=== PATIENT | female | born 1975 | race Caucasian/White ===

== ENCOUNTER 2017-05-21 18:57 | Emergency (ER) | payer OTHER, MEDICAID ==
[~2017-05-21] VITALS: Ht 182.9 cm; Wt 129.3 kg
[~2017-05-21 18:57] MED LIST: ADVAIR; ALPRAZOLAM ER1 MG PO; ALPRAZOLAM PO; AMOXICILLIN875 MG PO; BACTRIM DS TAB1 EACH; BENADRYL25 MG PO; BUTALB-APAP-CA1 EACH PO; CARISOPRODOL 3350 MG PO; CELEBREX 200 M200 M1 PO; CLONIDINE; DOXYCYCLINE 10100 MG PO; FLEXERIL PO; FLUCONASE; FLUZONE 2045 MCG/011; HYDROCODON-ACE1 EAC5 PO; HYDROCODON-ACE1 EAC8 PO; IBUPROFEN 800800 MG PO; KEFLEX500 MG PO; LIORESAL 10 MG10 MG PO; LOVENOX SUBQ; MACROBID 100 M100 M1 PO; MARINOL10 MG PO; MOBIC7.5 M1 PO; MOBIC7.5 MG PO; MULTI VITAMIN1 EACH PO; NORCO 5-325 TA1 EAC1 PO; NORCO 5-325 TA1 EACH PO; NORCO 7.5-3251 EACH PO; PEPCID40 MG PO; PERCOCET 5-3251 EACH PO; PHENERGAN 25 MG25 M1 PO; PNEUMOVAX25 MCG/0.5; PREDNISONE 20 M20 M1 PO; REQUIP 0.25 M0.25 MG PO; ULTRAM50 MG PO; VISTARIL 25 MG25 M1 PO; XANAX 0.25 MG0.25 MG PO; XANAX 0.5 MG0.5 M1 PO; ZANTAC 150MG T150 MG PO; ZYRTEC 10 MG TA10 MG; ZYRTEC 10 MG TA10 MG PO
[2017-05-21] MEDS ORDERED: VENTOLIN HFA 1818 GM INH (19:15)
[2017-05-21] MEDS ORDERED: ZANTAC 150MG T150 MG PO (19:15)
[2017-05-21] MEDS ORDERED: IBUPROFEN 800800 M1 PO (19:15)
[2017-05-21 19:55] LABS: ABSOLUTE EOSINOPHILS 0.1 thou/uL (0.0-0.7); ABSOLUTE LYMPHOCYTES 2.3 thou/uL (0.8-5.3); ABSOLUTE MONOCYTES 0.7 thou/uL (0.0-1.2); BASOPHILS 0.9 %; EOSINOPHILS 2.2 %; HEMATOCRIT 39.5 % (37.0-47.0); HEMOGLOBIN 13.2 gm/dL (12.0-15.0); LYMPHOCYTES 57.2 %; MCH 28.8 pg (26.0-34.0); MCHC 33.5 g/dL (28.0-37.0); MONOCYTES 16.2 %; MPV 9.3 fl. (7.2-11.1); NUCLEATED RBCS 0 /100WBC; PLATELET COUNT* 197 thou/uL (150-400); POLYS 23.5 %; RBC 4.59 mil/uL (4.20-5.00); WBC 4.1 thou/uL (4.0-11.0)
[2017-05-21 19:59] LABS: URINE BILIRUBIN NEGATIVE (Negative); URINE BLOOD NEGATIVE (Negative); URINE CLARITY CLEAR; URINE COLOR YELLOW; URINE GLUCOSE-RANDOM NEGATIVE (Negative); URINE KETONES NEGATIVE (Negative); URINE LEUKOCYTES-REFLEX NEGATIVE (Negative); URINE NITRITE-REFLEX NEGATIVE (Negative); URINE PROTEIN NEGATIVE (Negative); URINE UROBILINOGEN 0.2 E.U./dl (0.2-1.0)
[2017-05-21 20:03] LABS: CALCIUM 8.2 mg/dL (8.5-10.1); CREATININE 0.8 mg/dL (0.6-1.3); POTASSIUM 3.7 mmol/L (3.5-5.1)
[2017-05-21 20:08] LABS: ALBUMIN 3.3 g/dL (3.4-5.0); TOTAL BILIRUBIN 0.2 mg/dL (<0.1-1.0); TOTAL PROTEIN 6.9 g/dL (6.4-8.2)
[2017-05-21 20:20] LABS: INFLUENZA A ANTIGEN None Detected (None Detect)
[2017-05-21] MEDS ORDERED: PROMETHAZINE V473 ML PO (20:42)
[2017-05-21] MEDS ORDERED: PROAIR HFA8.5 GM INH (20:42)
[2017-05-21] MEDS ORDERED: TORADOL 10 MG T10 MG PO (20:42)
[2017-05-21] MEDS ORDERED: TESSALON PERLE100 MG PO (20:42)
[2017-05-21] MEDS ORDERED: ACETAMINOPHEN-1 EAC1 PO (20:42)
[2017-05-21] MEDS ORDERED: ZPAK PO (20:45)
[2017-05-21 20:54] VITALS: BP 123/73
--- NOTE | 2017-05-26 06:17 | EKG ---
[place] [address] ELECTROCARDIOGRAM REPORT Name: TRENAVIJAY ABBY Room: [facility]#: [id number] Admission: 05/21/17 Attend Phys: Discharge: 05/21/17 Date of : 77 Report #: [id number] THIS REPORT FOR: //name// [facility] ED Test Date: 2017-05-24 Test Time: 21:26:49 Pat Name: VIJAY ALBRECHT Department: Room: Gender: F [employer]: ZONIA : 1975 Requested By: Arcelia Bonilla Order Number: [id number] MD: Khoa Valera Measurements Intervals [place] Rate: 65 P: 71 DC: 145 QRS: 43 QRSD: 107 T: 34 QT: 444 QTc: 462 Interpretive Statements Sinus rhythm Abnormal R-wave progression, early transition Compared to ECG 06/06/2008 22:36:45 No significant changes Electronically Signed On 05-26-2017 6:17:09 ECOLOGY PROFESSOR by Khoa Valera [email or web address] <ELECTRONICALLY SIGNED> By: Khoa Valera MD, [facility] 02/616 25 25 Khoa Valera MD, [facility] /EPI
== END 2017-05-21 20:55 | disposition home or self-care (01) ==
LOC: M.ERS 18:57
PROVIDERS: Nurse Practitioner Family; Physician Assistant
DX: J11.1 Influenza due to unidentified influenza virus with other respiratory manifestations (principal); J40 Bronchitis, not specified as acute or chronic; J45.909 Unspecified asthma, uncomplicated; K21.9 Gastro-esophageal reflux disease without esophagitis; F10.99 Alcohol use, unspecified with unspecified alcohol-induced disorder; Z88.5 Allergy status to narcotic agent

== ENCOUNTER 2017-05-24 17:54 | Emergency (ER) | payer OTHER, MEDICAID ==
[~2017-05-24] VITALS: Ht 182.9 cm; Wt 129.3 kg
[~2017-05-24 17:54] MED LIST changes: +ACETAMINOPHEN-1 EAC1 PO; +IBUPROFEN 800800 M1 PO; +PROAIR HFA8.5 GM INH; +PROMETHAZINE V473 ML PO; +TESSALON PERLE100 MG PO; +TORADOL 10 MG T10 MG PO; +VENTOLIN HFA 1818 GM INH; +ZPAK PO
[2017-05-24 21:46] LABS: ABSOLUTE EOSINOPHILS 0.1 thou/uL (0.0-0.7); ABSOLUTE LYMPHOCYTES 4.3 thou/uL (0.8-5.3); ABSOLUTE MONOCYTES 0.7 thou/uL (0.0-1.2); ABSOLUTE NEUTROPHILS 2.7 thou/uL (1.6-8.1); BASOPHILS 0.6 %; EOSINOPHILS 1.2 %; HEMATOCRIT 39.7 % (37.0-47.0); HEMOGLOBIN 13.5 gm/dL (12.0-15.0); LYMPHOCYTES 54.4 %; MCH 28.7 pg (26.0-34.0); MCHC 34.1 g/dL (28.0-37.0); MCV 84.2 fL (80.0-100.0); MONOCYTES 9.3 %; MPV 8.8 fl. (7.2-11.1); NUCLEATED RBCS 0 /100WBC; PLATELET COUNT* 238 thou/uL (150-400); POLYS 34.5 %; RBC 4.72 mil/uL (4.20-5.00); RDW-CV 13.5 % (10.5-14.5); WBC 7.9 thou/uL (4.0-11.0)
[2017-05-24 21:55] LABS: ANION GAP 13 mmol/L (7-16); BUN 13 mg/dL (7-18); CALCIUM 8.9 mg/dL (8.5-10.1); CHLORIDE 104 mmol/L (98-107); CO2 26 mmol/L (21-32); CREATININE 0.8 mg/dL (0.6-1.3); GLUCOSE 90 mg/dL (70-99); POTASSIUM 3.5 mmol/L (3.5-5.1); SODIUM 143 mmol/L (136-145)
[2017-05-24 22:02] LABS: ALBUMIN 3.8 g/dL (3.4-5.0); ALKALINE PHOSPHATASE 61 U/L (46-116); LIPASE 102 U/L (73-393); SGOT 24 U/L (15-37); SGPT 35 U/L (30-65); TOTAL BILIRUBIN 0.4 mg/dL (<0.1-1.0); TOTAL PROTEIN 7.7 g/dL (6.4-8.2); TROPONIN-I LEVEL <0.06 ng/mL (<0.06)
[2017-05-24 23:54] VITALS: BP 146/82
== END 2017-05-24 23:55 | disposition home or self-care (01) ==
LOC: M.ERS 17:54
PROVIDERS: Nurse Practitioner Family
DX: J09.X2 Influenza due to identified novel influenza A virus with other respiratory manifestations (principal); R07.89 Other chest pain; R55 Syncope and collapse; R06.02 Shortness of breath; K21.9 Gastro-esophageal reflux disease without esophagitis; G89.29 Other chronic pain; J45.909 Unspecified asthma, uncomplicated; Z88.8 Allergy status to other drugs, medicaments and biological substances; Z87.442 Personal history of urinary calculi; Z88.5 Allergy status to narcotic agent

== ENCOUNTER → 2018-12-13 | Outpatient (CLI) | payer OTHER, MEDICAID ==
[~2018-12-13] MED LIST changes: +AMOXICILLIN 50500 MG PO; +LOSARTAN POTASS50 MG PO; +MEDROLDOSEPACK PO; +PEPCID20 MG PO
== END ==
LOC: M.RAD 10:54
DX: Z12.31 Encounter for screening mammogram for malignant neoplasm of breast (principal); M25.762 Osteophyte, left knee; M25.761 Osteophyte, right knee; M17.0 Bilateral primary osteoarthritis of knee; M70.61 Trochanteric bursitis, right hip

== ENCOUNTER → 2018-12-16 | Outpatient (CLI) | payer OTHER, MEDICAID | LOC: M.NUC 12-09 09:57 | DX: K31.84 Gastroparesis (principal); R13.10 Dysphagia, unspecified; Z98.84 Bariatric surgery status; R11.2 Nausea with vomiting, unspecified ==

== ENCOUNTER → 2021-01-15 | Outpatient (CLI) | payer OTHER, MEDICAID | LOC: M.RAD 10:52 | PROVIDERS: ATTEND Family Medicine | DX: Z12.31 Encounter for screening mammogram for malignant neoplasm of breast (principal) ==